=== PATIENT | male | born 1970 | race Caucasian/White ===

== ENCOUNTER 2016-05-24 16:17 | Outpatient (CLI) ==
[2014-12-19 12:30] VITALS: BMI 41.8
--- NOTE | 2016-05-24 16:55 | DI ---
EXAM: Chest two views HISTORY: Fever, unspecified COMPARISON: None TECHNIQUE: Two views of the chest were performed FINDINGS: The lungs are clear. There is no pleural effusion or pneumothorax. The heart is normal in size. The mediastinal contour is normal. There are no acute abnormalities of the bones. IMPRESSION: No acute cardiopulmonary process.
[2016-05-24 17:36] LABS: BASOPHILS % (AUTO) 0.4 % (0.0-3.0); EOSINOPHILS # (AUTO) 0.3 K/ul (0.0-0.7); EOSINOPHILS % (AUTO) 4.1 % (0.0-7.0); HEMOGLOBIN 14.8 g/dl (14.0-18.0); IMMATURE GRANULOCYTE % (AUTO) 0.3 % (0.0-5.0); LYMPHOCYTES # (AUTO) 2.2 K/uL (0.60-3.4); LYMPHOCYTES % (AUTO) 28.9 (10.0-50.0); MEAN CORPUSCULAR HEMOGLOBIN 30.6 pg (27.0-31.0); MEAN CORPUSCULAR HGB CONC 36.1 (31.8-35.4); MEAN CORPUSCULAR VOLUME 84.7 fl (80.0-94.0); MONOCYTES # (AUTO) 0.6 K/uL (0.4-2.0); MONOCYTES % (AUTO) 7.6 (0-10); NEUTROPHILS # (AUTO) 4.5 K/ul (2.0-6.9); NEUTROPHILS % (AUTO) 58.7; PLATELET COUNT 217 10^3/uL (140-440); RED BLOOD COUNT 4.84 10^6/ul (4.70-6.10); WHITE BLOOD COUNT 7.72 K/ul (4.2-10.2)
[2016-05-24 17:55] LABS: FLU INTERNAL QC INTERNAL QC VALID; RAPID FLU A NEGATIVE (NEGATIVE); RAPID FLU B NEGATIVE (NEGATIVE)
== END 2016-05-24 16:18 | disposition home or self-care (01) ==
LOC: LAB 16:17
PROVIDERS: ATTEND General Practice
DX: R50.9 Fever, unspecified (principal); R05 Cough; R06.2 Wheezing
CPT/HCPCS: 36415; 84145; 85025; 87804

== ENCOUNTER 2017-04-09 15:51 | Outpatient (CLI) ==
[2014-12-19 12:30] VITALS: BMI 41.8
--- NOTE | 2017-04-09 16:32 | US ---
EXAM: Left upper extremity venous Doppler History: Left arm pain. Technique: Multiple sonographic images through the left upper extremity were obtained. Color duplex Doppler was used to interrogate vascular flow. Findings: The left jugular, subclavian, axillary, brachial, cephalic, basilic, radial and ulnar vein s demonstrate spontaneous flow with normal compression and augmentation. Impression: No sonographic evidence for deep venous thrombosis
== END 2017-04-09 15:52 | disposition home or self-care (01) ==
LOC: RAD 15:51
PROVIDERS: ATTEND General Practice
DX: M79.602 Pain in left arm (principal)

== ENCOUNTER 2017-04-10 14:58 | Outpatient (CLI) ==
[2014-12-19 12:30] VITALS: BMI 41.8
== END 2017-04-10 14:59 | disposition home or self-care (01) ==
LOC: LAB 14:58
PROVIDERS: ATTEND General Practice
DX: M79.602 Pain in left arm (principal)
CPT/HCPCS: 36415; 85651; 86140

== ENCOUNTER 2017-09-18 11:32 | Inpatient (IN) ==
[2017-09-18 12:29] VITALS: BMI 46.3
--- NOTE | 2017-09-18 13:39 | DI ---
EXAM: CHEST FRONTAL AND LATERAL VIEWS HISTORY: Hypertension. COMPARISON: 05/24/2016 FINDINGS: Heart size and mediastinal contour remain within normal limits. No acute infiltrates. Normal vascularity with no pleural fluid or pneumothorax. The bony thorax has no acute finding. IMPRESSION: Heart size is within normal limits . No acute process.
--- NOTE | 2017-09-18 13:40 | DI ---
EXAM: Two views of the left lower leg HISTORY: Swelling and redness. COMPARISON: None FINDINGS: There is no cortical irregularity or displaced fracture. There is no lytic or blastic lesi on. There is no dislocation. There is mild soft tissue subcutaneous swelling. There is no subcutane ous gas or fluid collection. IMPRESSION: Soft tissue swelling with no subcutaneous gas or definitive fluid collection.
[2017-09-18] MEDS: GENTAMICIN SULFATE 80 MG in SODIUM CHLORIDE 50 ML IV SCH ×2 (14:59→20:58)
[2017-09-18] MEDS ORDERED: TYLENOL PO STA (15:06)
--- NOTE | 2017-09-18 16:02 | CT ---
EXAM: CT Head HISTORY: Headache COMPARISON: None TECHNIQUE: CT head performed without contrast FINDINGS: There is no mass effect, midline shift, or intracranial hemmorhage. Morel white differenti ation is preserved. There is no extra-axial collection. The ventricles, sulci, and basal cisterns a re patent and symmetric. There is no depressed calvarial fracture. The mastoid air cells are clear. Mucosal thickening ethmoid air cells and left maxillary sinus with fluid level left maxillary sinus. IMPRESSION: 1. No acute intracranial abnormality. 2. Sinusitis with fluid level, suggesting acute sinusitis.
[2017-09-18] MEDS: ROCEPHIN 2 GM in SODIUM CHLORIDE 100 ML IV SCH (16:04)
[2017-09-18] MEDS ORDERED: OXYCODONE PO PRN (21:41)
[2017-09-19] MEDS: GENTAMICIN SULFATE 80 MG in SODIUM CHLORIDE 50 ML IV SCH ×2 (06:12→13:31)
[2017-09-19] MEDS: ROCEPHIN 2 GM in SODIUM CHLORIDE 100 ML IV SCH (08:58)
--- NOTE | 2017-09-19 09:21 | HP ---
DATE OF SERVICE: 09/18/17 CHIEF COMPLAINT: 1. Pain, swelling, redness left anterior leg. 2. Diarrhea plus nausea. HISTORY OF PRESENT ILLNESS: The patient last Sunday09/15/17, completed his work day and went home at 3 o' clock. He had a backyard republican at his house and attended that. He took a shower between 10 and 11 o'clock in the evening and went to bed. He noted some soreness in the left anterior leg. The patient, while in bed, was so chilly that nothing could warm him up. He took four Ibuprofen (800 mg). He continued to be restless during the night and upon waking in the morning, he had a severe headache with swelling, redness and marked tenderness in the left anterior leg. He was seen by a provider at 9:31 a.m. The patient denied any neck pain although he was chilly but not at this time. He denies injury to the left leg. He injured his right leg some three weeks ago after a lawnmower fell over him. He didn't seem to have any consequences from that incident. PAST PERSONAL HISTORY: The patient had history of headaches, are more intense. The patient has a history of asthma but had not had any acute episode for several years. The patient had appendectomy. FAMILY HISTORY: Father had heart disease as well as diabetes. Mother had myocardial infarction and also has history of diabetes in the family. SOCIAL HISTORY: The patient is and resides with his . He works for [employer]. He smoked previously but stopped 25 years ago. No alcoholic beverages. MEDICATIONS: (PRIOR TO THIS ADMISSION) 1. Medrol Dosepak initiated from [facility] 2. Albuterol Sulfate 3. ProAir one inhalation three times a day as needed; had not used it for some time, never had any asthmatic episodes. 4. The patient also has Epinephrine EpiPen because of his allergy to wasp stings or bites. ALLERGIES: CHLORPHENIRAMINE MALEATE, VENOM-WASP OR STING. REVIEW OF SYSTEMS: CONSTITUTIONAL: The patient was markedly chilly the night of Sunday and early Sunday morning, 09/15/17 and 09/16/17. He took Ibuprofen. No fatigue. 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 No visual disturbances. No diplopia or hemanopia and no syncope. VISUAL: No loss of vision. No blurring of vision or diplopia or hemaniopsia. AUDITORY: Hearing is good. No pain, no drainage. No tinnitus. RESPIRATORY: Denies any shortness of breath. No cough. No sore throat. CARDIOVASCULAR: Denies any chest pain, chest tightness or diaphoresis. GASTROINTESTINAL: The patient had nausea but no vomiting. He had diarrhea since yesterday (Sunday) and again today (Sunday). He was in the emergency room on . GENITOURINARY: Denies any pain on urination, frequency, blood in urine or urgency. MUSCULOSKELETAL: The patient has tenderness in the left anterior leg with redness otherwise negative. INTEGUMENT: The patient has redness left anterior leg with tenderness. There is no wound in around the area of redness and swelling, also distally and proximally. There is no open sore area on the foot including the web spaces. ENDOCRINE: Negative. HEMATOLOGIC: Negative. PSYCHIATRIC: The patient's affect is normal. No behavioral problems. Denies any anxiety or depression. PHYSICAL EXAMINATION: GENERAL: 47-year-old male admitted to the hospital because of swelling and redness of the left anterior leg with marked tenderness and markedly chilly sensation. No injury to this area and there is no skin break noted in around the area or nearby. The patient had developed diarrhea maybe secondary to Clindamycin which began yesterday (Sunday) and continued today ( Sunday). He was seen in the emergency room Sunday morning. He was given Clindamycin intravenously as well as 300 mg orally three times a day. VITAL SIGNS: On admission to the floor 11:47 a.m., temperature 98.6, pulse 77, BP 139/86 left; right 124/80, respiratory rate 18, oxygen saturation 96 on room air. Height 5'11", 332 lbs. HEAD: Unremarkable. Scalp: No active dermatitis. Face is symmetrical and equal with no facial weakness, no redness. No remarkable tenderness in the frontal or maxillary sinus areas to palpation and/or pressure. EYES: Pupils equal/reactive to light about 3 mm in size. Conjunctivae not pale. Sclerae not icteric. MOUTH: Unremarkable. THROAT: No inflammation, tumors or exudate. NECK: No masses. No bruit. No tenderness. No rigidity. Range of motion of the neck is normal. CHEST: Symmetrical and equal with good expansion and no tenderness. LUNGS: Breath sounds are heard on both sides. No rales, no wheezing. HEART: Audible and regular with good tones. No murmurs. ABDOMEN: Markedly protuberant, soft with no remarkable tenderness. No guarding. Bowel sounds are active. No masses palpable. EXTERNAL GENITALIA: Not examined. RECTAL: Not performed. LOWER EXTREMITIES: Left leg is red, swollen and tender; bigger than the right side. Pedal pulses are present. There are no raw areas or infected areas in the web space of the foot. UPPER EXTREMITIES: Symmetrical and equal. LABS: Time: 7:45 p.m. CBC essentially normal except for slightly lower hematocrit at 40.6. ESR 23 minimally elevated. Electrolytes are normal. Renal panel normal. GFR estimated 86. Sugar 105 nonfasting. Liver normal. Protein normal. Procalcitonin 0.11. Urinalysis normal. ASSESSMENT: 1. CELLULITIS 2. GASTROENTERITIS MAYBE ANTIBIOTIC RELATED 3. MARKEDLY ELEVATED BMI, 332 LBS, BMI 46.3 4. HISTORY OF ASTHMA, HAD NOT HAD ANY ACUTE EPISODE IN THE LAST SEVERAL YEARS PLAN: Will continue the antibiotics as ordered. Will see what tomorrow brings. This patient was given two Tylenol and will not be given again. If he has a headache , he will be given Oxycodone plain. This patient had blood cultures at [facility] and we will try to retrieve that. He also had Doppler studies of the lower extremity and was judged negative for any thrombosis. The patient on admission will be given fluids plus antibiotics plus CT scan of the head after all the blood samples were obtained. DEDE
[2017-09-19] MEDS: INFUVITE ADULT 10 ML in D5%-1/2NS-KCL 20 MEQ/L IV SOL 1,000 ML IV SCH ×2 (11:41→13:51)
[2017-09-19] MEDS: MAXIPIME 2 GM in SODIUM CHLORIDE 100 ML IV SCH (20:10)
[2017-09-20] MEDS: MAXIPIME 2 GM in SODIUM CHLORIDE 100 ML IV SCH ×3 (04:48→20:19)
--- NOTE | 2017-09-20 10:15 | PN ---
DATE OF SERVICE: 09/19/17 SUBJECTIVE: The patient is alert and feeling better. There is still some redness in the left anterior leg maybe about the same. The edema maybe less. The patient did mention that the Gentamicin when given intervenously did produce some discomfort in his abdomen so this medication was discontinued. Also discontinued the Rocephin. The Rocephin is changed to Cefepime 2grams intervenously Q 8 hours for a better coverage. The patient's CT of the head is negative for any acute intracranial process. X-ray of the tibia and fibula was negative for any bone abnormalities. There are no periosteal reactions. The chest x-ray was also negative for acute cardiopulmonary processes. CBC showed normal WBC at the beginning and also on repeat today. The SED rate was slightly elevated at 23 and the CRP is markedly elevated at 102.5. Normal ranging being 0.0 to 4.9. Urinalysis is normal. Blood sugar is slightly elevated but not remarkable at 105. Liver enzymes are normal. The Procalcitonin initially on admission was .11. I am not certain as to the cause of the redness in the leg. There are no skin breaks that I could identify from the foot to the whole leg. An MRI maybe requested. VITAL SIGNS: Temperature 98.6 and his previous temperatures were normal, Pulse 75, blood pressure 140/90, respiratory rate 16, oxygen saturation 99 at room air. He did eat 100% of dinner. LUNGS: Clear HEART: Normal sinus rhythm Etiology of this redness still unknown to me. Continued redness of the left leg , admission was felt necessary to order to deliver the antibiotics intervenously. This patient also will be given an antibiotic plus a probiotic if the diarrhea does not resolve on it's own. This patient may have developed an antibiotics associated colitis. The patient also was complaining of headache quite severe but relieved by Jackson. The patient admitted to have had headaches in the past but not this intense and as frequent as this is. Seems like the headache had continued. The patient had has headaches in the past, history of asthma but had not had any episodes in the last several years and genitourinary problems in the past as well as kidney stones. MTDD
[2017-09-21] MEDS: MAXIPIME 2 GM in SODIUM CHLORIDE 100 ML IV SCH ×3 (04:54→20:30)
[2017-09-22] MEDS: MAXIPIME 2 GM in SODIUM CHLORIDE 100 ML IV SCH ×2 (04:21→12:04)
[2017-09-22 13:12] VITALS: BP 130/84; TEMP 98.7
--- NOTE | 2017-09-26 14:37 | PN ---
DATE OF SERVICE: 09/20/17 SUBJECTIVE: The patient is alert, in no distress. He is eating good and claims to feel good and the pain in the left leg is much less. The redness is still present, maybe slightly less and if not as red. This might be a streptococcal infection of the skin rather than staphylococcal. OBJECTIVE: V/S: 09/20/17 at 5:23 p.m. temperature 98, pulse 64, BP 140/77, respiratory rate 18, oxygen saturation 97 on room air. This patient had been afebrile since admission. We will continue the same medications and see what happens tomorrow. The patient was advised of this. DEDE
--- NOTE | 2017-09-26 14:42 | PN ---
DATE OF SERVICE: 09/21/17 SUBJECTIVE: The patient today is alert, oriented times four, not dyspneic or tachypneic. Denies any chest pain or abdominal pain. His appetite is good. No headaches. No chills or chilly sensation. He noted that his leg redness is much less. This almost completely has resolved. It also has not spread. The patient is receiving Cefepime 2 gm intravenously q.8hr. His last labs showed GFR of 93. I would get another CBC and CMP tomorrow. Most likely will be discharged with a third generation Cephalosporin. I did inform him that he is taking a fourth generation of this antibiotic but there is no oral medication for that. We gave Omnicef 300 mg capsule to be taken every 12 hours tomorrow when he is discharged. He will be followed closely. DEDE
--- NOTE | 2017-09-27 15:45 | DS ---
DATE OF SERVICE: 09/22/17 PATIENT IDENTIFICATION: 47 year old male who has redness of the left anterior leg began late Sunday evening 09/15/17. He worked that day and had a BBQ or a democrat in the back yard and took a shower between 10-11. He felt some soreness and was quite restless. Took four ibuprofen tablets. He was chilly and nothing could keep him warm. The patient upon waking up in the morning; Sunday09/16/17 noted a redness , pain and marked tenderness in the left anterior leg. The patient had not a bite or any injury to this leg. He proceeded to go to [facility] Emergency Room and was seen and had Doppler studies which was negative for any venous thrombosis. There was a note about blood cultures times two however now of the blood cultures were done. He was given Clindamycin intervenously at the emergency room and prescription Clindamycin 300mg every 8 hours to go home. The patient was seen 09/18/17 at the office because of persistent redness although less amount of pain but now has diarrhea since the day before and had three bowel movement until the time of examination at the office today. He was then advised admission because of the persistent redness which has not improved remarkably and the diarrhea maybe associated with antibiotic associated colitis. There was no blood in the stool. Physical examination revealed an alert individual who is not in any distress. Color was good. LUNGS: Clear HEART: Normal sinus rhythm ABDOMEN: No remarkable tenderness. The only abnormality noted is the left anterior leg with redness occupying about 3/4 of the leg anterior leg area. There is also edema. Blood cultures were drawn prior to intervenous medications and the blood cultures were negative after four days. Stool culture is negative for salmonella or Shigella. Negative for Campylobacter. The patient was treated initially with Rocephin 2 grams intervenously and Gentamicin 80mg every 8 hours. Gentamicin was then discontinued the following day because of some epigastric distress or abdominal distress after receiving the intervenous medication. The Ceftriaxone also was discontinued by then and replaced with Cefepime 2grams intervenously Q 8 hours. The patient's labs showed normal WBC, slight elevated ESR 23, markedly elevated C reactive protein 102.5 range of normal 0.0 to 4.9. Urinalysis was unremarkable on admission. Renal panel is normal as well as liver. The patient was continued on Cefepime and the pain has decreased as well as the redness. The swelling also has decreased. The patient at the time of discharge was alert and ambulatory and with persistent edema. The redness however has almost completely resolved and the tenderness is much less except pressing again anterior tibial surface. LUNGS: Clear to auscultation HEART: Normal sinus rhythm CRP was requested prior to discharge to compare with the previous CRP on , 102.5. The patient is instructed to see me this coming Sunday at the office and before if there is any concern. He should not resume the medication that was given consisting of Clindamycin as well as Hydrocodone. He should resume only the Aspirin. He was prescribed 300mg on Omnicef to be taken twice a day for one week. The patient's loose bowel movements had resolved while in the hospital and the clostridium difficile testing was negative. This patient maybe tested later on. 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 Plain x-ray of the tibia and fibula were negative for any jamar pathology. Soft tissue swelling was noted. No subcutaneous gas. Chest x- ray showed no acute cardiopulmonary process. Head CT was done because headache was more than usual. CT of the head without contrast showed no acute intracranial abnormality, sinusitis was fluid level suggesting acute sinusitis, left maxillary. Headache has resolved prior to discharge and maybe secondary to sinusitis involving the ethmoid as well as the left maxillary. FINAL DIAGNOSES: 1. Large area of erythema with redness and tenderness, left anterior leg, cellulitis maybe streptococcal. 2. Maxillary sinusitis, left 3. Ethmoid sinusitis PLAN: 1. Discharge home today 2. Prescribed 300mg of Omnicef to be taken twice a day beginning this evening. 3. He should be seen this coming Sunday at the office and should call the office for a time. 4. He should be seen sooner if he has any concerns or problems. 5. He should not resume his home medication except the Aspirin and the prescriptions as ordered. DEDE
== END 2017-09-22 15:24 | disposition home or self-care (01) | DRG 556 ==
LOC: MEDSURG A 11:32
PROVIDERS: ADMIT General Practice; ATTEND General Practice
DX: M79.662 Pain in left lower leg (principal); Z68.42 Body mass index [BMI] 45.0-49.9, adult; R19.7 Diarrhea, unspecified; R11.0 Nausea; R51 Headache; K52.9 Noninfective gastroenteritis and colitis, unspecified; J32.0 Chronic maxillary sinusitis; J32.2 Chronic ethmoidal sinusitis
CPT/HCPCS: 36415; 80053; 80170; 81001; 83525; 84145; 85025; 85651; 86140; 87015; 87040; 87045; 87493; 87899; 93005; 93010

== ENCOUNTER 2017-10-02 15:33 | Outpatient (CLI) | END 2017-10-02 15:34 | disposition home or self-care (01) | LOC: FCC-LAB 15:33 | PROVIDERS: ATTEND General Practice | DX: L52 Erythema nodosum (principal) | CPT/HCPCS: 82272 ==

== ENCOUNTER 2017-12-11 12:04 | Observation (INO) ==
[2017-12-11 12:37] VITALS: BMI 47.3
--- NOTE | 2017-12-11 14:11 | US ---
EXAM: Ultrasound venous Doppler left lower extermity HISTORY: Cellulitis COMPARISON: None TECHNIQUE: Venous duplex ultrasound of the left lower extremity was performed using color, baeza-scal e, and Doppler flow imaging. FINDINGS: There is normal color flow and compression of the left common femoral, greater saphenous, profunda femoral, femoral, popliteal, peroneal, posterior tibial, and anterior tibial veins without e vidence of intraluminal thrombus. No reflux is identified. IMPRESSION: No left lower extremity deep venous thrombosis.
[2017-12-11] MEDS ORDERED: TYLENOL PO STA (14:36)
[2017-12-11] MEDS ORDERED: TYLENOL ONE (14:39)
[2017-12-11] MEDS ORDERED: TUBERSOL 10 TESTS ID STA (19:41)
[2017-12-11] MEDS ORDERED: NAPROSYN PO SCH (20:00)
--- NOTE | 2017-12-11 20:07 | CT ---
EXAM: CT of the chest without contrast. HISTORY: Recurrent redness legs. PROCEDURE: Contiguous axial CT images of the chest without contrast with coronal and sagittal reform ats. FINDINGS: The heart is within normal limits in size. The thoracic aorta is within normal limits in d iameter. There are calcified mediastinal and hilar lymph nodes. No infiltrate or consolidation. The bones and soft tissues are unremarkable. CT abdomen/pelvis of 12/11/2017 dictated separately. Impression: Negative CT of the chest.
--- NOTE | 2017-12-11 20:15 | CT ---
EXAM: CT of the abdomen and pelvis without contrast. HISTORY: Recurrent redness anterior tibial surface. PROCEDURE: Contiguous axial CT images of the abdomen and pelvis without contrast with coronal and sa gittal reformats. FINDINGS: There is diffuse fatty infiltration of the liver. The gallbladder, pancreas, spleen, adren al glands and kidneys are normal in appearance. The abdominal aorta is within normal limits in diamet er. The visualized loops of bowel and appendix are normal in appearance. No free fluid or free air i n the abdomen or pelvis. The bladder is minimally filled with no abnormality identified. The seminal vesicles and prostate gland are unremarkable. The bones are unremarkable. There is a small umbilica l hernia containing only fat. Impression: No acute findings in the abdomen or pelvis. Diffuse fatty infiltration of the liver. Umbilical hernia as described.
[2017-12-12] MEDS ORDERED: TUBERSOL 10 TESTS ID STA (07:11)
[2017-12-12] MEDS: ASPIRIN EC PO SCH (08:43)
[2017-12-12] MEDS: NAPROSYN PO SCH ×2 (08:44→20:41)
[2017-12-12] MEDS: MULTIVITAMIN TABLET PO SCH (08:44)
[2017-12-13] MEDS: ASPIRIN EC PO SCH (08:53)
[2017-12-13] MEDS: NAPROSYN PO SCH (08:54)
[2017-12-13] MEDS: MULTIVITAMIN TABLET PO SCH (08:54)
[2017-12-13 10:31] VITALS: BP 124/79; TEMP 97.8
--- NOTE | 2017-12-27 10:19 | HP ---
DATE OF SERVICE: 12/11/17 CHIEF COMPLAINT: Fever, chills, nausea, vomiting and headache. HISTORY OF PRESENT ILLNESS: The patient on the day before admission went to work at 6 a.m. The patient while at work experienced chills and chilly sensation with fever, nausea and headache, as well as vomiting. The patient at about 8 a.m. went home. He rested at home and he was wearing shorts and his daughter noted in the evening that he had some redness in his legs. The patient had cellular redness in the same place a few months ago. The patient presented to the office because of the spreading redness, as well as history of fever, chills, nausea and vomiting, plus headache. The patient felt like he may be coming down with the influenza. This patient on the previous admission was felt erythema nodosum and was referred to a assistant director of admissions, but no diagnosis was given and the assistant director of admissions was initially thinking of a biopsy, however since the patient had received cortisone that the assistant director of admissions declined to proceed with the biopsy. No medication was given and no diagnosis. This patient, I believe, still has erythema nodosum with cause undetermined. PAST PERSONAL HISTORY: The patient was admitted 09/18/2017 to this facility because of pain, swelling and tenderness on the left anterior leg. The patient also had nausea, plus diarrhea during that episode. He was seen initially at [facility] emergency room and Doppler studies were done, which was negative. The patient had history of headaches prior to this episode. He also has history of asthma, but had not had any episodes for several years. The daughter has asthma. He also had previous appendectomy. FAMILY HISTORY: Father had heart disease, as well as diabetes. Mother had myocardial infarction and also history of diabetes in the family. SOCIAL HISTORY: The patient is and resides with his . He works [employer]. He stopped smoking some 25 years ago. He denies any alcohol use. MEDICATIONS: Multivitamin one daily Aspirin 81 mg daily ALLERGIES: Cefdinir, Chlorpheniramine maleate and wasp venom. REVIEW OF SYSTEMS: CONSTITUTIONAL: The patient had fever and chills the day before with nausea, diarrhea, vomiting and headache. He has some fatigue. 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 No seizures and no syncopal episodes and no ataxia. VISUAL: Denies any double vision, blurred vision or loss of vision. AUDITORY: Hearing is good and no tinnitus. No pain or drainage. RESPIRATORY: No cough, no shortness of breath, no hemoptysis. CARDIOVASCULAR: Denies any chest pain or chest tightness. GASTROINTESTINAL: The patient had nausea, anorexia, vomiting, plus diarrhea. GENITOURINARY: Denies any pain, frequency or urgency of urination. MUSCULOSKELETAL: The patient has muscle aches, but not significant now. There is no significant pain or tenderness in the left anterior leg compared to the previous admission of September 18, 2017. ENDOCRINE: Negative. INTEGUMENT: Erythema on the left anterior leg occupying a wide space measuring approximately 10 cm or wider by about 8. There are no blisters. HEMATOLOGIC: No history of prolonged bleeding or spontaneous bleeding or spontaneous ecchymosis. PSYCHIATRIC: Affect is normal. PHYSICAL EXAMINATION: GENERAL: We have a 47 year old male admitted to the hospital because of chills, fever, nausea, anorexia and vomiting and headaches. He also had diarrhea, which he also on the previous admission. VITAL SIGNS: Temperature 98.1, pulse 100, blood pressure 144/96 left , 136/90 right, respiratory rate 20, oxygen saturation 98 at room air. He is 5'11", 339 pounds and 8.9 ounces, BMI 47.4. HEAD: Unremarkable. FACE: Symmetrical and equal with no facial weakness and no redness. No tenderness in the frontal or maxillar sinus areas to palpation under pressure. EYES: Pupils equal/reactive to light about 3 mm in size and round. Conjunctivae not pale. Sclerae not icteric. MOUTH: Unremarkable. THROAT: No inflammation, no tumors or exudates. NECK: No masses. No bruit. No tenderness. No rigidity. CHEST: Symmetrical and equal with good expansion. No remarkable tenderness. LUNGS: Breath sounds are heard in both sides. No rale or wheezing. HEART: Audible and regular with good tones. No murmurs. Not tachycardic. ABDOMEN: Protuberant, soft with no remarkable tenderness. No guarding. Bowel sounds are active. No masses palpable. EXTERNAL GENITALIA: Not examined. RECTAL: Not performed. LOWER EXTREMITIES: The left anterior leg still has some swelling with redness, but no remarkable tenderness compared to 09/18/2017. Pedal pulses are present. UPPER EXTREMITIES: Symmetrical and equal. ASSESSMENT: 1. LARGE AREA OF ERYTHEMA LEFT ANTERIOR TIBIAL SURFACE, PROBABLY ERYTHEMA NODOSUM, CAUSE UNDETERMINED. 2. ELEVATED BMI 3. HISTORY OF ASTHMA WITHOUT ANY RECENT ACUTE EPISODES 4. VIRAL SYNDROME TIME SPENT: GREATER THAN 65 MINUTES MTDD
--- NOTE | 2017-12-27 10:59 | DS ---
DATE OF SERVICE: 12/13/17 PATIENT IDENTIFICATION: 47 year old male who came to the office because of fever, chills, diarrhea, nausea, vomiting, plus headache the day before. The family noted redness in the left anterior leg which has spread rapidly. The redness was wide and this was not remarkably tender compared to September 18, 2017. The patient at that time had marked tenderness with swelling of the left lower extremity with negative venous scan done at [facility]. The patient during that admission had slightly elevated ESR of 23, but the CRP was 102.5. The fasting insulin was 131.5. The patient was treated with IV Clindamycin initially at [facility] and given Clindamycin oral. The impression then was cellulitis. However, on digging into his case that it probably is not a bacterial infection rather a vasculitis type problem. Procalcitonin was normal and the CRP was high. HOSPITAL COURSE: The patient on this time was not given any antibiotics. The physical examination revealed no significant acute findings, except for the leg. LUNGS: Clear. HEART: Normal sinus rhythm. 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 The patient during this admission had the following work-up, CBC with normal WBC, normal hemoglobin, slightly lower hematocrit, ESR, 16, serum lipase and amylase normal, liver enzymes normal, renal panel normal. Molecular assay nuclear amplification for influenza A and B were negative. Quantitative influenza A is 1:16 and B is negative. ASO titer 150, normal. Cytomegaly Virus IGG antibody markedly elevated at 10. The IGM is less than 30, normal. VIRGIL negative and ANCA is negative. TB skin test was negative. CT scan of the chest was done looking for lupillo enlargement and would maybe be the reason for the erythema nodosum were negative. The CT of the abdomen and pelvis also were negative for any lupillo enlargement. Doppler studies of the left lower extremity is still negative and was negative back in August. 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 The patient was given Naprosyn during this admission. I had talked to Dr. Rose at the time of discharge with regards to this patient and I did inform him that I needed his help to make a diagnosis of this recurrent redness in the left anterior leg. I felt that this patient probably has a erythema nodosum. He accepted to see him in his service. The patient has an appointment the following day. The patient at the time of discharge is alert, ambulatory without any distress. VITAL SIGNS: At 10 a.m. on 12/13/17 showed a temperature 97.8, pulse 79, blood pressure 124/79, respiratory rate 18, oxygen saturation 93 at room air. The previous oxygen saturation was 97 and 98. This patient has no changes in his physical appearance, as well as his cardiopulmonary status. He is not short of breath or not dyspneic. FINAL DIAGNOSES: 1. ERYTHEMATOUS LESION LEFT ANTERIOR TIBIAL SURFACE-MOST LIKELY ERYTHEMA NODOSUM 2. HISTORY OF ASTHMA 3. ELEVATED BMI 47.44. 4. ELEVATED IGG ANTIBODY TITER, CMV 10, SLIGHTLY ELEVATED INFLUENZA A 1:16. We will be anxiously awaiting as to the impression of Dr. Spangler, Operations And Intelligence Assistant when the patient is seen tomorrow. I did tell him to come by the office and let me know. PROGNOSIS: Guarded. TIME SPENT: GREATER THAN 30 MINUTES MTDD
== END 2017-12-13 14:45 | disposition home or self-care (01) ==
LOC: MEDSURG B 12:04 → INTOOBSV 12:04
PROVIDERS: ADMIT General Practice; ATTEND General Practice
DX: R50.9 Fever, unspecified (principal); R11.2 Nausea with vomiting, unspecified; R51 Headache; L98.9 Disorder of the skin and subcutaneous tissue, unspecified; B34.9 Viral infection, unspecified; Z68.42 Body mass index [BMI] 45.0-49.9, adult
CPT/HCPCS: 36415; 80053; 82150; 83520; 83690; 85025; 85651; 86038; 86060; 86256; 86644; 86645; 86710; 87040; 87070; 87502; 87651